=== PATIENT | female | born 1960 | race Caucasian/White ===

== ENCOUNTER 2016-06-07 07:18 | Observation (INO) | payer OTHER ==
[2016-06-07] MEDS ORDERED: SULFUR COLLOID 5 MCI V IV ONE (07:57)
--- NOTE | 2016-06-07 08:22 | DIRPT ---
CLINICAL DATA: Right breast cancer. EXAM: NUCLEAR MEDICINE BREAST LYMPHOSCINTIGRAPHY right TECHNIQUE: Intradermal injection of radiopharmaceutical was performed at the 12 o'clock, 3 o'clock, 6 o'clock, and 9 o'clock positions around the right nipple. The patient was then sent to the operating room where the sentinel node(s) were identified and removed by the surgeon. RADIOPHARMACEUTICALS: Total of 1 mCi Millipore-filtered Technetium-99m sulfur colloid, injected in four aliquots of 0.25 mCi each. IMPRESSION: Uncomplicated intradermal injection of a total of 1 mCi Technetium-99m sulfur colloid for purposes of sentinel node identification. Electronically Signed By: Robert Madison M.D. On: 06/07/2016 08:20
[2016-06-07] MEDS ORDERED: MEPERIDINE 25 MG/ML TUBEX IV PRN (09:30)
[2016-06-07] MEDS ORDERED: hydrALAZINE 20 MG/ML VIAL IV PRN (09:30)
[2016-06-07] MEDS ORDERED: FENTANYL 100 MCG/2 ML VIAL IV PRN (09:30)
[2016-06-07] MEDS ORDERED: ONDANSETRON HCL 4 MG ODT TAB PO PRN (09:30)
[2016-06-07] MEDS ORDERED: HYDROmorphone 1 MG INJECTION IV PRN (09:30)
[2016-06-07] MEDS ORDERED: ONDANSETRON HCL 4 MG/2 ML VIAL IV PRN ×2 (09:30→16:30)
[2016-06-07] MEDS ORDERED: PROMETHAZINE 25 MG/ML VIAL IV PRN ×3 (09:30→16:30)
[2016-06-07] MEDS ORDERED: LABETALOL 20 MG/4 ML SYRINGE IV PRN (09:30)
--- NOTE | 2016-06-07 09:31 | SC.ANESPOS ---
Post-Anesthesia Note LOC: [place] [facility] Calling Post-Anesthesia Assessment: Awake, Returned to Baseline, Hemodynamically Stable , Pain Control Adequate Phase I & II Recovery Complete: Yes Apparent Anesthesia Complication: No : N - Vital Signs Blood Pressure: 157/76 Pulse: 81 Resp Rate: 18 O2 Sat: 98 Temp: 99.4 F
--- NOTE | 2016-06-07 09:33 | HIM.ANES ---
Anesthesia Evaluation & Plan Diagnoses: MALIGNANT NEOPLASM OF CENTRAL PORTION OF RIGHT FEMALE BREAST (06/07/16) Consented Procedure: RIGHT MASTECTOMY WITH SENTINEL LYMPH NODE BIOPSY AND LEFT PORT PLACEMENT - Focused Review of Systems Cardiac History: Yes: Hx Hypertension, Hx Cardiac Disorders HEENT: Yes: Hx Vision Problem (CONTACTS), Other HEENT Problems Hx Other HEENT Surgery: T&A Respiratory: Yes: Hx Snoring Gastrointestinal: Yes: Hx Gastroesophageal Reflux Disease (Controlled), Hx Gastrointestinal Disorders Neurological/Musculoskeletal: Yes: Hx Back Pain (LOWER) No: Hx Neurological Disorders Psychological: Yes Hx Anxiety, Yes Hx Depression, Yes Hx Mental/Emotional Disorders HX Other Psyco/Soc Problems: anxiety, depression Blood/Autoimmune: No: Hx AIDS, Hx Hepatitis (type) Smoking Status: Never smoker Surgical History: Yes: Appendectomy, Bladder Tact (2003), Knee (RIGHT KNEE A/R X 2) Other Surgical History: T&A PARTIAL HYSTERECTOMY LEFT KIDNEY SURGERY.. 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% - Focused Physical Exam NPO since: 06/06/16 1730 Mallampati: Class III Thyromental Distance: Greater than 3 Dental: Normal - no significant findings Cardiovascular/Chest: Normal Respiratory: Lungs clear Any problems with anesthesia, including nausea and vomiting?: Yes (N&V) Any relatives with a history of Malignant Hyperthermia?: No Beta Ev given (if appropriate): N/A Does the patient have a history of Motion Sickness-: No Other: Allergies Allergy/AdvReac Type Severity Reaction Status Date / Time No Known Allergies Allergy Verified 06/07/16 08:51 Home Medications Medication Instructions Recorded Last Taken Type Alprazolam [Xanax] 0.25 - 0.5 mg PO Q8 PRN 06/17/12 06/06/16 17:00 History Amlodipine Besylate [Norvasc] 5 mg PO DAILY 06/05/16 06/07/16 06:45 History Losartan Potassium 100 mg PO DAILY 06/05/16 06/07/16 06:45 History Oxycodone HCl [Oxycodone Immediate 10 mg PO TID PRN 06/05/16 06/06/16 16:00 History Release] Spironolactone [Aldactone] 12.5 mg PO DAILY 06/05/16 06/07/16 06:45 History Tizanidine [Zanaflex] 2 mg PO DAILY PRN 06/05/16 06/06/16 17:00 History Height and Weight Patient's height 5 ft 5 in Patient's weight 174 lb BMI 25.0 Vital Signs Temperature 99.4 F 06/07/16 09:31 Pulse Rate 81 06/07/16 09:31 Respiratory Rate 18 06/07/16 09:31 Blood Pressure 157/76 06/07/16 09:31 Pulse Oxygen Saturation 98 06/07/16 09:31 - Anesthetic Plan Anesthesia Type: General ASA Class: 2 -: I have examined this patient and reviewed the medical record. The patient has been assessed prior to anesthesia. Risks and benefits of anesthesia and anesthetic technique options have been discussed and all questions answered. The patient accepts the risk and desires me to proceed with the planned anesthetic.
[2016-06-07] MEDS: CEFAZOLIN 1 GM VIAL ONE ×2 (10:11→13:16)
[2016-06-07] MEDS ORDERED: METHYLENE BLUE 10 MG/ML VIAL ONE ×2 (12:51→13:09)
[2016-06-07] MEDS ORDERED: BUPIVACAINE 0.25% 30 ML VIAL ONE (12:51)
[2016-06-07] MEDS ORDERED: CEFAZOLIN 1 GM VIAL ONE (12:56)
[2016-06-07] MEDS ORDERED: HEPARIN 5000 UNITS/ML VIAL ONE (12:56)
[2016-06-07] MEDS ORDERED: ISOVUE-300 (61%) 50 ML ONE (12:56)
[2016-06-07] MEDS ORDERED: HYDROmorphone 2 MG/ML VIAL IM ONE (14:01)
[2016-06-07] MEDS ORDERED: MIDAZOLAM 2 MG/2 ML VIAL IV ONE (14:01)
[2016-06-07] MEDS ORDERED: FENTANYL 100 MCG/2 ML VIAL IV ONE (14:01)
[2016-06-07] MEDS ORDERED: PROPOFOL 200 MG/20 ML VIAL IV ONE (14:01)
[2016-06-07] MEDS ORDERED: DEXAMETHASONE 4 MG/ML VIAL IV ONE (14:01)
[2016-06-07] MEDS ORDERED: ONDANSETRON HCL 4 MG/2 ML VIAL IV ONE (14:01)
[2016-06-07] MEDS ORDERED: GLYCOPYRROLATE 1 MG VIAL IM ONE (14:01)
--- NOTE | 2016-06-07 14:50 | HIMOPRPT ---
DATE OF PROCEDURE: 06/07/16 PREOPERATIVE DIAGNOSIS: Right breast cancer, For the clinical staging, please see the history and physical. POSTOPERATIVE DIAGNOSIS: Right breast cancer, For the clinical staging, please see the history and physical. Final pathology pending. PROCEDURES: Right total mastectomy with right axillary sentinel lymph node biopsy x 1, left subclavian single-lumen venous access port placement under fluoroscopic guidance, superior vena cavogram. SURGEON: Dimas North MD ANESTHESIA: General. COMPLICATIONS: None. SPECIMENS: Right breast tissue. 1 right axillary sentinel lymph nodes to Pathology. PACKINGS AND DRAINS: One Scott drain. BLOOD LOSS: 13 mL. FLUOROSCOPIC FINDINGS: At the termination the procedure, the port catheter tip was in the distal superior vena cava/right atrial junction. This was visualized fluoroscopically. In addition contrast dye injection via the port catheter revealed the port catheter tip in the distal superior vena cava/right atrial junction. OPERATIVE FINDINGS AND TECHNIQUE: With consent, the patient was brought to the Same Day Surgery Unit at [facility]. She underwent injection of radioactive colloid by the Department of Radiology. After the appropriate amount of waiting time, the patient was taken back to the operative suite, placed under general anesthesia. Right breast was injected with methylene blue. Right breast and axillary area was then prepped and draped in the usual fashion. The left subclavian neck areas were prepped and draped in usual fashion as well. The left subclavian vein was penetrated quite easily on the first pass. Guidewire was threaded and fluoroscopically entered the superior vena cava/ right atrial junction. Skin incision was made, initial finding needle was removed. An appropriate site in the left anterior chest wall was chosen for port pocket placement. Skin incision was made. Subcutaneous port pocket was created. The port catheter was then tunneled from one incision to the next and this proceeded without incident. The dilator introducer was then placed over the guidewire and fluoroscopically into the superior vena cava. Guidewire and dilator were removed, leaving only the Peel-Away introducer sheath in place. The port catheter was threaded through the Peel-Away introducer sheath. By removing the introducer sheath, the port catheter remained in place. Contrast dye injection via the port catheter revealed the port catheter tip in the distal superior vena cava/right atrial junction. The port catheter was cut to the appropriate length and the port attachment apparatus was attached appropriately. Port had excellent blood return and easy flush. Fluoroscopically , the distal tip of the port catheter was in the distal superior vena cava/ right atrial junction. Wounds were irrigated and dried. This port was secured to the subcutaneous tissue of the chest using Prolene suture. Deep tissues were re-approximated using 3-0 Vicryl suture. Skin approximation was accomplished using 4-0 Monocryl in subcuticular fashion. Benzoin and Steri-Strips were applied. The patient tolerated the procedure well. Chest x-ray is pending. The right breast was then attended to. An elliptical incision was made to encompass the nipple-areolar complex and superior and inferior medial and lateral margins were created as were skin flaps. Medial dissection was taken to the sternum superiorly to the clavicle, inferior to the lower ribs, laterally to the latissimus dorsi muscle. In the medial lateral fashion taking with the pectoralis major muscle fascia, the right breast was removed in its entirety. The breast was marked with an anatomic orientation suture and passed off as specimen. Axillary areas were then identified. Clavipectoral fascia was incised. A blue lymph node was identified. This turned out to be hot and blue lymph node as sentinel lymph node #1. This was passed off as specimen. The remainder the axillary basin was quiet without any evidence of radio activity. There is no blue staining noted either. Wound was irrigated and dried. Hemostasis was achieved. A Scott drain was placed across the chest wall. This was secured to the skin using Prolene suture. Subcutaneous tissue was then reapproximated using 2-0 Vicryl in an interrupted fashion. The skin was then approximated using the Prineo closure device. Fluff dressings and Farhad bandages were applied. The patient tolerated the procedure well with findings as described. She was taken to the recovery room in stable condition. Pathology is pending.
[2016-06-07] MEDS: FENTANYL 100 MCG/2 ML VIAL IV PRN ×2 (15:05→15:15)
[2016-06-07] MEDS ORDERED: FENTANYL 100 MCG/2 ML VIAL ONE (15:08)
[2016-06-07] MEDS ORDERED: HYDROmorphone 1 MG INJECTION ONE ×2 (15:08→15:54)
[2016-06-07] MEDS: HYDROmorphone 1 MG INJECTION IV PRN ×4 (15:25→15:55)
[2016-06-07] MEDS ORDERED: DOCUSATE-SENNA CONCENTRATE TAB PO PRN (16:30)
[2016-06-07] MEDS ORDERED: LORAZEPAM 2 MG/ML VIAL IV PRN (16:30)
[2016-06-07] MEDS ORDERED: MORPHINE 2 MG/ML INJECTION IV PRN (16:30)
[2016-06-07] MEDS ORDERED: LR 1,000 ML IV SCH (16:30)
[2016-06-07] MEDS ORDERED: ACETAMINOPHEN 325 MG/TAB TABLET PO PRN (16:30)
[2016-06-07] MEDS ORDERED: ACETAMINOPHEN 650 MG SUPP PR PRN (16:30)
[2016-06-07] MEDS ORDERED: ZOLPIDEM TARTRATE 5 MG TAB PO PRN (16:30)
[2016-06-07] MEDS ORDERED: Aluminum;Magnesium;Simethicone 30 ML UDC PO PRN (16:30)
[2016-06-07] MEDS ORDERED: SODIUM CHLORIDE 0.9% 3 ML FLUSH FLUSH SCH (16:30)
[2016-06-07] MEDS ORDERED: DIPHENHYDRAMINE 25 MG CAP PO PRN (16:30)
[2016-06-07] MEDS ORDERED: Albuterol/Ipratropium Neb 3 ML NEB NEB PRN (16:30)
[2016-06-07] MEDS ORDERED: IBUPROFEN 600 MG TAB PO PRN (16:30)
[2016-06-07] MEDS ORDERED: TIZANIDINE 2 MG TAB PO PRN (16:30)
[2016-06-07] MEDS: OXYCODONE HCL 5 MG TABLET PO PRN ×2 (17:01→21:43)
--- NOTE | 2016-06-07 17:35 | DIRPT ---
CLINICAL DATA: Status post Port-A-Cath placement. EXAM: CHEST 1 VIEW COMPARISON: None. FINDINGS: The heart size and mediastinal contours are within normal limits. Both lungs are clear. No pneumothorax or pleural effusion is noted. Interval placement of left subclavian Port-A-Cath with distal tip in expected position of cavoatrial junction. The visualized skeletal structures are unremarkable. IMPRESSION: Interval placement of left subclavian catheter with distal tip in expected position of cavoatrial junction. No pneumothorax is noted. Electronically Signed By: John French Jr, M.D. On: 06/07/2016 17:32
[2016-06-07] MEDS ORDERED: Vaccine Screening Complete SCH (18:00)
[2016-06-08] MEDS ORDERED: ENOXAPARIN 40 MG/0.4 ML PFS SQ SCH (03:00)
[2016-06-08] MEDS: OXYCODONE HCL 5 MG TABLET PO PRN ×2 (08:43→13:53)
[2016-06-08] MEDS ORDERED: AMLODIPINE 5 MG TAB PO SCH (09:00)
[2016-06-08] MEDS ORDERED: LOSARTAN POTASSIUM 50 MG TAB PO SCH (09:00)
[2016-06-08] MEDS ORDERED: SPIRONOLACTONE 25 MG TAB PO SCH (09:00)
[2016-06-08 10:33] VITALS: BP 116/76; PULSE 85
[2016-06-08 11:14] VITALS: TEMP 99
--- NOTE | 2016-06-08 13:00 | PCM.DCS92 ---
Discharge Disposition: Home Discharge Condition: Improved Cognitive Discharge Status: Unimpaired Fuctional Discharge Status: Independent Physician Follow up/Referrals: Dimas North MD [Staff Physician] - Call for Appointment Home Medications/ New Prescriptions: New Promethazine [Phenergan] 25 mg PO Q4H PRN #30 tab PRN Reason: Nausea/Vomiting Changed Oxycodone HCl [Oxycodone Immediate Release] 5 mg PO TID PRN #30 tablet PRN Reason: Pain No Action Alprazolam [Xanax] 0.25 - 0.5 mg PO Q8 PRN PRN Reason: Anxiety Spironolactone [Aldactone] 12.5 mg PO DAILY Losartan Potassium 100 mg PO DAILY Amlodipine Besylate [Norvasc] 5 mg PO DAILY Tizanidine [Zanaflex] 2 - 4 mg PO Q8H PRN PRN Reason: Muscle Spasms Additional Instructions: empty and record drain output daily. Diet at Discharge: As Tolerated, Regular Activity: No Heavy Lifting, No Driving Call Office For: Worsening Symptoms, Wound is Draining Pus, Fever over 101 F, Wound is Painful, Wound is Red, Pain Uncontrolled By Meds, Other (See Details) ( chest pain or difficulty breathing) Discontinue use of:: Alcohol, All Illegal Substances, All Types of Tobacco - DC Summary Notes Hospital Course Note:: Discharge summary on patient named EDWARD ANDRADE admitted to [facility] on 06/07/16 by Dimas North MD. The patient underwent surgery by Dr. North. Please see operative report for full details. Postoperatively, the patient's diet and activity were slowly advanced, which she was able to tolerate. Date of discharge is 06/08/16. Discharge condition: stable Final discharge diagnosis: Breast cancer - Physical Exam Vital Signs: Initial Vitals Temperature 99.4 F 06/07/16 08:37 Pulse Rate 81 06/07/16 08:37 Respiratory Rate 18 06/07/16 08:37 Blood Pressure 157/76 06/07/16 08:37 Pulse Oxygen Saturation 98 06/07/16 08:37 Constitutional: Alert (Awake, Fully oriented. Normal and appropriate affect.Well appearing. Well nourished.), No apparent distress Oriented to: Time, Person, Place - HEENT Head: Normal (normocephalic, atraumatic.), Other (No cervical lymphadenopathy. No supraclavicular lymphadenopathy. Neck: No palpable mass, supple , trachea midline.) Eye: Normal (pupils equal, reactive to light, and round; EOMI, Sclera white) Oropharynx: Normal (Pharynx: Moist without exudate,Gums-no swelling, No oropharyngeal lesions or erythema, Mucous membranes are dry.) ENT EAC: Normal (No oropharyngeal lesions or erythema. Mucous membranes are dry. ) TMJ: Normal Nose: No Symptoms Reported (septum midline, Nares patent, without discharge or bleeding.) Respiratory: Normal - CTA (Clear to auscultation bilaterally. No wheezing, rales , rhonchi. Chest wall movements are symmetric. No use of accessory muscles to breathe.) Cardiovascular: Normal (RRR , Normal S1, S2. No murmurs, rubs, or gallops. PMI non-displaced. Carotids: no carotid bruits. No bradycardia or tachycardia. DP pulses 2+ bilaterally.) - GI Auscultation: Normal (normal active sounds) Palpation: Normal (Soft,non distended,nontender. No hepatosplenomegaly.) Tenderness: Non tender (No rebound or guarding) Randolph's Sign: Negative Rectal Exam: Deferred - Musculoskeletal Back: Normal (Non-Tender) Extremities: Normal (Normal tone, DP pulses 2+ bilaterally, No cyanosis or edema bilaterally, FROM bilaterally.) - Integumentary Skin: Normal (Clean, dry, and intact. No rashes. No lesions.) Lymphatics: Normal (No cervical lymphadenopathy. No supraclavicular lymphadenopathy.) - Neurologic Memory Impaired: Normal Motor Function: Normal (Motor 5/5 throughout.Normal tone, Pulses 2+ No cyanosis or edema, FROM) Cranial Nerve: Normal (CN II-XII intact sensation, strength 5/5) Cerebellar: Normal (Babinski: toes downgoing bilaterally. Intact Finger to nose. Sensory grossly intact to light touch. Intact rapid alternating movements bilaterally. No pronator drift.) Mood Description: Normal (Fully oriented. Normal and appropriate affect.) Perception: Normal (Normal and appropriate affect.)
== END 2016-06-08 14:02 | disposition home or self-care (01) ==
LOC: SDC 07:18 → EDSTATUS 13:55 → MPS3 16:33
PROVIDERS: ADMIT Surgery Vascular Surgery; ATTEND Surgery Vascular Surgery
PROC: 0HTT0ZZ Resection of Right Breast, Open Approach (ICD-10-PCS; principal; 2016-06-07 10:50)
DX: C50.211 Malignant neoplasm of upper-inner quadrant of right female breast (principal); Z17.1 Estrogen receptor negative status [ER-]; I10 Essential (primary) hypertension; Z79.899 Other long term (current) drug therapy
CPT/HCPCS: 19303; 36561; 38792; 77001; 96372; A9541; C1788; G0237; G0378; J0690; J1100; J1170; J1644; J1650; J2060; J2250; J2270; J2405; J3010; J3490; Q9968; S0020